=== PATIENT | male | born 1990 | race Caucasian/White ===

== ENCOUNTER 2023-07-27 18:12 | Emergency (ER) | payer OTHER, SELFPAY ==
[2023-07-27 18:25] VITALS: BP 129/72
--- NOTE | 2023-07-27 19:43 | ED.GENMED ---
History of Present Illness
General
Chief Complaint: DVT/Possible Blood Clot
Source: patient
Exam Limitations: none
Time Seen by Provider: 07/27/23 19:03
Nursing documentation reviewed up to this point in time: agreed with
Travel History
Have you had any contact with someone who has COVID-19?: No
Do you have any symptoms of coronavirus? Fever > 100 degrees, chills, cough, shortness of breath, sore throat, loss of taste or smell, muscle aches, or headache?: No
History of Present Illness
History of Present Illness:
33-year-old male with a history of right-sided posterior proximal calf pain while running 2 weeks ago. Patient saw [facility] and these are suspicious for gastro numerous tear. Patient is scheduled for an MRI at the end of this month but
had noticed some increased swelling and some anterior lower extremity bruising the past 2 days and he was told to come for US. no numbness/tingling/weakness in the leg . no fever, chills, chest pain, sohrtness of breath.
Past History
Past History
ED Past Medical History: None
ED Past Surgical History: None
Social History
Tobacco: Non-smoker
Alcohol: Occasional
Drug: None
Personal:
Review of Systems
Review of Systems
Allergies reviewed?: Yes
All Other Systems: Not applicable
Phy Exam
Physical Exam
Physical Exam:
GENERAL: Alert , in no apparent distress
CARDIAC: 2+ dp pulse
NEUROLOGICAL: Alert and oriented, no focal neuro deficits
SKIN: Warm and dry, skin intact. bruising
MUSCULOSKELETAL: mild RLE edema, anterior lower extremity swellign with some bruising
tendenress gastrocnemius, mildly
no defect
achilles seems intact
nv intact distal leg
PSYCH: Normal and appropriate interaction.
Course
Orders/Labs/Results
Orders:
Orders
07/27/23 18:30
US Legs, Right [US Periph Venous LOWER Ext RT] Urgent
Comment:
Reason For Exam: pain in calf
Vital Signs
Initial and Last Documented VS:
Initial Vital Signs
Temp Pulse Resp BP Pulse Ox
97.9 F 77 16 129/72 100
07/27/23 18:25 07/27/23 18:25 07/27/23 18:25 07/27/23 18:25 07/27/23 18:25
Last Documented Vital Signs
Temp Pulse Resp BP Pulse Ox
97.9 F 77 16 129/72 100
07/27/23 18:25 07/27/23 18:25 07/27/23 18:25 07/27/23 18:25 07/27/23 18:25
MDM/Problems Addressed
Differential Diagnosis Includes:
gastroc tear, contusion, hematoma, dvt
MDM/Problems Addressed:
33-year-old male with a calf injury while running, followed by Ortho, scheduled for an MRI, suspicious for a gastrinomas tear presents for increasing swelling anterior right lower extremity and some bruising that developed recently so he was sent
for r/o dvt
nv is intact
bruising anteriorly is likely from the muscle tear
no defect palpated
achilles intact
us neg
d/c home
*Critical Care Note
Total Time (30-74mins, 75-104mins- exclusive of procedures): Not Applicable
ED Attending Note
-
Portions of this chart may have been created with voice recognition software.� Occasional wrong word or��sound alike� substitutions may have occurred due to the inherent limitations of voice recognition software.
Discharge Plan
Departure
Patient Disposition: Home (Routine Discharge)
Date of Disposition: 07/27/23
Time of Disposition: 19:58
Patient with high blood pressure during this ER visit?: No
Discharge Problem:
Leg swelling, Ecchymosis, Strain of gastrocnemius muscle
Instructions: Swelling
Prescriptions:
No Action
cephalexin 500 mg capsule
500 mg PO BID 7 Days Qty: 14 0RF
Activity Restrictions/Additional Instructions:
Your leg swelling is probably related to the previous likely gastrocnemius muscle injury from your run the other day. Keep using the boot and using crutches or rollator as needed. Elevate and you can ice off-and-on. Watch for worsening swelling
or pain and return to the ER for any severe swelling, numbness tingling or weakness in the leg, cold foot or any concerns. Your ultrasound was negative for a clot today.
Interventions
Interventions:
*Risk Screen - Suicide Last Done: 07/27/23 18:25
*General Assessment Last Done: 07/27/23 18:25
*Neglect/Abuse Screening Last Done: 07/27/23 18:25
ED- Cardiac Assessment Last Done: 07/27/23 19:13
ED- Pulmonary Assessment Last Done: 07/27/23 19:13
ED-Peripheral Vascular Assessment Last Done: 07/27/23 19:13
ED-Skin Assessment Last Done: 07/27/23 19:13
Discharge Date and Time
Print Language: [place]ORE[place]
== END 2023-07-27 20:16 | disposition home or self-care (01) ==
LOC: EMR 18:12
PROVIDERS: EMERGENCY PHYSICIAN Emergency Medicine
DX: S86.111A Strain of other muscle(s) and tendon(s) of posterior muscle group at lower leg level, right leg, initial encounter (principal); S80.11XA Contusion of right lower leg, initial encounter; X50.1XXA Overexertion from prolonged static or awkward postures, initial encounter; Y93.02 Activity, running
CPT/HCPCS: 99284; 93971